=== PATIENT | male | born 1945 | race Caucasian/White ===

== ENCOUNTER → 2021-11-10 | Emergency (ER) | payer MEDICARE ==
[~2021-11-10] VITALS: Ht 170.2 cm; Wt 81.8 kg
[~2021-11-10] MED LIST: ASPIRIN 81M81 MG/TA2 PO
[2021-11-10 15:48] LABS: BASO % 0.3 % (0.0-2.0); EOS % 0.1 % (0.0-4.0); GRAN # 8.2 K/mm3 (1.4-6.5); GRAN % 82.5 % (42.2-75.2); LYMPH # 0.8 K/mm3 (1.2-3.4); LYMPH % 8.1 % (20.0-51.0); MEAN CELL VOLUME 87 fl (80.0-100.0); MEAN CORPUSCULAR HGB CONC 34 g/dl (33.0-37.0); MEAN PLATELET VOLUME 9.3 fl (7.4-10.4); MONO # 0.8 K/mm3 (0.1-0.6); MONO % 8.4 % (1.7-9.3); PLATELET COUNT 149 K/mm3 (130-400); RED BLOOD COUNT 3.26 M/mm3 (4.20-5.60); REDCELL DISTRIBUTION WIDTH-CV 13.2 % (11.5-14.5)
[2021-11-10 15:49] LABS: HEMATOCRIT 28.5 % (42.0-52.0); HEMOGLOBIN 9.7 g/dl (13.5-18.0); MEAN CORPUSCULAR HEMOGLOBIN 30 pg (27-31)
[2021-11-10 15:54] LABS: INR 1.2 (0.8-3.0); PROTHROMBIN TIME 13.5 SECONDS (9.7-12.8)
[2021-11-10 16:05] LABS: ALBUMIN 3.5 gm/dL (3.4-4.8); BILIRUBIN,TOTAL 0.7 mg/dL (0.2-1.2); CALCIUM 9.6 mg/dL (8.4-10.2); CREATININE, serum 1.64 mg/dL (0.72-1.25); POTASSIUM 3.9 mmol/L (3.5-4.5); TOTAL PROTEIN 6.1 gm/dL (6.2-8.1)
[2021-11-10 21:05] VITALS: BP 114/65; PULSE 87; TEMP 98
== END ==
LOC: COL.ER 15:19
PROVIDERS: Emergency Medicine
DX: S32.9XXA Fracture of unspecified parts of lumbosacral spine and pelvis, initial encounter for closed fracture (principal); S32.009A Unspecified fracture of unspecified lumbar vertebra, initial encounter for closed fracture; S92.002A Unspecified fracture of left calcaneus, initial encounter for closed fracture; S92.001A Unspecified fracture of right calcaneus, initial encounter for closed fracture; Z20.822 Contact with and (suspected) exposure to COVID-19; W13.2XXA Fall from, out of or through roof, initial encounter
CPT/HCPCS: J0690; J3010; J7040; Q9967